=== PATIENT | male | born 1950 | race Caucasian/White ===

== ENCOUNTER 2020-08-11 22:38 | Emergency (ER) | payer OTHER, MEDICARE, MEDICAID ==
[2020-08-11] MEDS ORDERED: Silver Sulfadiazine 1% Crm 50 GM Tube TOP ONE (23:00)
[2020-08-11] MEDS ORDERED: Diphtheria,Pertussis(Acell),Tetanus Vaccine 0.5 ML Syringe IM ONE (23:22)
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
== END 2020-08-11 23:35 | disposition home or self-care (01) ==
LOC: VM.ED 22:38
DX: T20.17XA Burn of first degree of neck, initial encounter (principal); T21.11XA Burn of first degree of chest wall, initial encounter; S09.21XA Traumatic rupture of right ear drum, initial encounter; Z23 Encounter for immunization; W22.8XXA Striking against or struck by other objects, initial encounter; X08.8XXA Exposure to other specified smoke, fire and flames, initial encounter
CPT/HCPCS: 90471; 90715; 99283; A9270-GY

== ENCOUNTER 2022-03-15 09:03 | Emergency (ER) | payer MEDICARE, OTHER | END 2022-03-15 10:58 | disposition home or self-care (01) | LOC: VM.ED 09:03 | DX: R31.9 Hematuria, unspecified (principal) | CPT/HCPCS: 81001; 99283; 99284 ==

== ENCOUNTER 2023-06-02 14:06 | Emergency (ER) | payer MEDICARE, OTHER ==
[2023-06-02] MEDS: Lidocaine 1% 10 ML MDV INJECT ONE (14:30)
== END 2023-06-02 15:40 | disposition home or self-care (01) ==
LOC: VM.ED 14:06
DX: S61.214A Laceration without foreign body of right ring finger without damage to nail, initial encounter (principal); S61.216A Laceration without foreign body of right little finger without damage to nail, initial encounter; W31.2XXA Contact with powered woodworking and forming machines, initial encounter
CPT/HCPCS: 12002; 99283; J3490